=== PATIENT | female | born 1945 | race Asian ===

== ENCOUNTER 2025-02-21 11:05 | Outpatient (AMB) | payer MEDICARE, MEDICAID, SELFPAY ==
[2025-02-21 11:54] VITALS: BP 148/95; PULSE 81; RESP 14; TEMP 36.3; O2SAT 95; BMI 24.7
--- NOTE | 2025-02-21 11:54 | AMB.GYNCLNOT ---
Vital Signs 02/21/25 11:54 Height 1.63 m Height Method Stated Weight 65.431 kg Weight Measurement Method Standing Scale BMI 24.7 BP 148/95 H Blood Pressure Source Automatic Cuff Blood Pressure Location Left Upper Arm Position Sitting Respiration 14 Pulse 81 Pulse Source Monitor Temp 97.4 F Temp Source Oral Pulse Oximetry (%) 95 Oxygen Delivery Method Room Air Allergies/Home Meds Allergies & Medications Allergies No Known Allergies Allergy (Verified 03/07/25 10:01) Medication Reconciliation simvastatin 40 mg tablet (Zocor) 40 mg PO QDAY #0 tabs 04/27/16 [History Confirmed 04/17/25] losartan 50 mg tablet 50 mg PO DAILY 07/07/21 [History Confirmed 04/17/25] empagliflozin 25 mg tablet (Jardiance) 25 mg PO QDAY 04/22/23 [History Confirmed 04/17/25] glipizide 5 mg tablet 5 mg PO BID 04/22/23 [History Confirmed 04/17/25] estradiol 0.01% (0.1 mg/gram) vaginal cream 1 g vaginal QDAY 30 days #42.5 grams 02/21/25 [Rx Confirmed 04/17/25] tranexamic acid 650 mg tablet 650 mg PO Q8H 7 days #21 tabs 02/21/25 [Rx Confirmed 04/17/25] Intake Visit Data Collection New Patient or Established: Established Patient (seen at [facility] within 3 years) Reason for Visit:: ABNORMAL VAGINAL BLEEDING Seen by Clinical Staff ONLY (RN/MA): No Cra Officer Required: No Do You Feel Safe at Home: Yes Authorities Contacted: N/A PCP or OBGYN visit in last 3 months: Yes Hx Now: No Are you currently on any form of Control: No Pain Present Currently: No Pain Scale Used: Jurado-Benavides/Numerical Pain scale:: 0 Smoking Status Smoking Status: 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 Menstrual regularity: regular Flow: normal Monthly: Yes Age at menarche: 16 Currently sexually active: No 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 1. Little interest or pleasure in doing things: not at all 2. Feeling down, depressed, or hopeless: not at all Total score: 0 PHQ-9 3. Trouble falling or staying asleep, or sleeping too much: Not at all 4. Feeling tired or having little energy: Not at all 5. Poor appetite or overeating: Not at all 6. Feeling bad about yourself - or that you are a failure or have let yourself or your family down: Not at all 7. Trouble concentrating on things, such as reading the newspaper or watching television: Not at all 8. Moving or speaking so slowly that other people could have noticed? - Or the opposite - being so fidgety or restless that you have been moving around a lot more than usual: not at all 9. Thoughts that you would be better off or of hurting yourself in some way: Not at all Total score: 0 Source: Developed by Drs. Olegario Miller, Sherley Olivia, Peter Boone and colleagues, with an educational nhung from [employer]. Depression screen completed yes Social History Living Situation History Housing: House Tobacco History Smoking Status: 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 Second Hand Smoke Exposure: No Alcohol History Alcohol Intake: Never Domestic Abuse History Do You Feel Safe at Home: Yes History of Present Illness HPI Narrative Patient is a 79-year-old who is presenting for postmenopausal bleeding. Patient reports ongoing bleeding for the last 4 to 5 days she also is complaining of a bulge in the vaginal area which she attributes as the reason for the bleeding. Patient is describing within that her ovary is out in the vagina. Patient has a past medical history significant for cervical adenopathy for she was seen by oncology over the last [address] scan showed nonspecific adenopathy with no mediastinal or acute abdominal or pelvic processes. Tumor markers were unremarkable. She was treated with antibiotics at that time. 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 No acute bleeding noted at the time of initial exam Office Procedures OBC Clinic LOC & Office Proc's Nursing/Assessment Patient Status: Established Patient OB Clinic Nursing Assessment: Medication Reconciliation, Update PMH in EMR and Vital Signs OB Clinic Coordination of Care: Complex Care and Chronic Disease 1-5, Consent,records obtained, informed consent, Education Simp Pt/Fam, 1 Ins Authorization, Lab and Imaging orders, Results/Orders obtained and Staff clarify orders Established Patient Charge Established Patient Point Assignment: 120 Established Patient Point Charge: EP Level 4 (120-155) Assessment & Plan Diagnosis / Problem List (1) Post-menopausal bleeding: Status: Acute Plan 79-year-old with recurrent postmenopausal bleeding 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 Return in 5 to 7 days with ultrasound results Planned endometrial biopsy at next appointment after the stripe is assessed. Possible surgical management including vaginal hysterectomy if patient desires. Advanced Care Planning Advance care planning discussed with:: patient and child
== END 2025-02-21 12:59 | disposition home or self-care (01) ==
LOC: HODSOBC 11:05
PROVIDERS: Supervising Provider Obstetrics & Gynecology; Visit Provider Obstetrics & Gynecology
DX: N95.0 Postmenopausal bleeding (principal); E11.9 Type 2 diabetes mellitus without complications; I10 Essential (primary) hypertension
CPT/HCPCS: 99214; G0463

== ENCOUNTER → 2025-02-22 | Outpatient (CLI) | payer MEDICARE, MEDICAID, SELFPAY ==
--- NOTE | 2025-02-22 11:09 | XR_ITS ---
Examination: Pelvic ultrasound, transabdominal, complete Technique: Transabdominal ultrasound of the pelvis performed using grayscale imaging Date and time of exam: February 22, 2025, 1116 hours INDICATIONS: Post menopausal bleeding beginning one month ago FINDINGS: Uterus 5.6 cm endometrial stripe 0.4 cm No uterine mass Right ovary 2.1 cm arterial flow Left ovary obscured by bowel gas IMPRESSION: No uterine mass, endometrial stripe 0.4 cm
--- NOTE | 2025-02-22 11:10 | XR_ITS ---
Examination: Transvaginal ultrasound of the pelvis, complete Technique: Transvaginal sonographic images pelvis performed using ruiz scale imaging Exam date and time: February 22, 2025, 1123 hours INDICATIONS: Postmenopausal bleeding beginning one month ago FINDINGS: Severely limited study, uterus ovaries obscured by bowel gas IMPRESSION: Severely limited study.
== END | disposition home or self-care (01) ==
PROVIDERS: PCP Family Medicine; Referring Provider Obstetrics & Gynecology; Visit Provider Obstetrics & Gynecology
DX: N95.0 Postmenopausal bleeding (principal)
CPT/HCPCS: 76830; 76856

== ENCOUNTER 2025-03-07 09:53 | Outpatient (AMB) | payer MEDICARE, MEDICAID, SELFPAY ==
--- NOTE | 2025-03-07 09:58 | GYNCLNT_ITS ---
Vital Signs 03/07/25 09:59 Height 1.63 m Height Method Stated Weight 65.487 kg Weight Measurement Method Standing Scale BMI 24.6 BP 137/73 H Blood Pressure Source Automatic Cuff Blood Pressure Location Right Upper Arm Position Sitting Respiration 17 Pulse 96 Pulse Source Monitor Temp 97.3 F Temp Source Temporal Artery Scan Pulse Oximetry (%) 95 Oxygen Delivery Method Room Air Allergies/Home Meds Allergies & Medications Allergies No Known Allergies Allergy (Verified 03/07/25 10:01) Medication Reconciliation simvastatin 40 mg tablet (Zocor) 40 mg PO QDAY #0 tabs 04/27/16 [History Co nfirmed 03/07/25] losartan 50 mg tablet 50 mg PO DAILY 07/07/21 [History Confirmed 03/07/25] empagliflozin 25 mg tablet (Jardiance) 25 mg PO QDAY 04/22/23 [History Confirmed 03/07/25] glipizide 5 mg tablet 5 mg PO BID 04/22/23 [History Confirmed 03/07/25] estradiol 0.01% (0.1 mg/gram) vaginal cream 1 g vaginal QDAY 30 days #42.5 grams 02/21/25 [Rx Confirmed 03/07/25] tranexamic acid 650 mg tablet 650 mg PO Q8H 7 days #21 tabs 02/21/25 [Rx Confirmed 03/07/25] Intake Visit Data Collection New Patient or Established: Established Patient (seen at [facility] within 3 years) Reason for Visit:: RESULTS Seen by Clinical Staff ONLY (RN/MA): No Back Line Cook Required: No Do You Feel Safe at Home: Yes Authorities Contacted: N/A PCP or OBGYN visit in last 3 months: Yes Date of Last PCP or OBGYN visit: 02/21/25 Hx Now: No Are you currently on any form of Control: No Pain Present Currently: No Pain Scale Used: Jurado-Benavides/Numerical Pain scale:: 0 Smoking Status Smoking Status: 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 1. Little interest or pleasure in doing things: not at all 2. Feeling down, depressed, or hopeless: not at all Total score: 0 PHQ-9 3. Trouble falling or staying asleep, or sleeping too much: Not at all 4. Feeling tired or having little energy: Not at all 5. Poor appetite or overeating: Not at all 6. Feeling bad about yourself - or that you are a failure or have let yourself or your family down: Not at all 7. Trouble concentrating on things, such as reading the newspaper or watching te levision: Not at all 8. Moving or speaking so slowly that other people could have noticed? - Or the opposite - being so fidgety or restless that you have been moving around a lot more than usual: not at all 9. Thoughts that you would be better off or of hurting yourself in some way: Not at all Total score: 0 If you checked off any problems, how difficult have these problems made it for you to do your work, take care of things at home, or get along with other people?: not difficult at all Source: Developed by Drs. Olegario Miller, Sherley Olivia, Peter Boone and colleagues, with an educational nhung from [employer]. Depression screen completed yes Social History Living Situation History Marital Status: Lives With: Family Housing: House Tobacco History Smoking Status: 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 Second Hand Smoke Exposure: No Alcohol History Alcohol Intake: Never Domestic Abuse History Do You Feel Safe at Home: Yes History of Present Illness HPI Narrative Richard Perla presents with recurrent postmenopausal bleeding occurring for 3 days. She initially experienced one episode of postmenopausal bleeding and underwent both transabdominal and transvaginal ultrasound on February 22, 2025. The patient had been prescribed medication that initially stopped the bleeding, but the bleeding has resumed. She describes feeling like her ovary is on her vagina, which appears to be related to pelvic organ prolapse that is bothersome to her, with symptoms described as coming out. She has a past medical history significant for localized cervical adenopathy, for which she was previously evaluated by oncology in 2021 and 2022. At that time, CT scans showed nonspecific cervical adenopathy with no mediastinal or acute abdominal or pelvic processes. Tumor markers including CA 19-9, CA 125, CA 15-3, and CEA were unremarkable in 2022. She was treated with antibiotics at that time, but no further follow-up was completed. The patient has been taking medicine for bleeding which previously stopped the bleeding, but bleeding has recurred. She was previously treated with antibiotics for cervical adenopathy in [id number]. She is a 79-year-old female. ROS: Positive for recurrent postmenopausal bleeding for 3 days, positive for sensation of pelvic organ prolapse. Diagnostic Test Results and Labs: - Pelvic ultrasound (02-22-2025): Uterus 5.6 cm, endometrial stripe 0.4 cm, no uterine mass. Right ovary 2.1 cm with axial flow, left ovary obscured by gas. - CT scans (): Nonspecific cervical adenopathy, no mediastinal or acute process in abdomen or pelvis - Tumor markers (): CA 19-9, CA 125, CA 15-3, and CEA unremarkable Exam General General Appearance: alert, in no apparent distress and healthy appearing Head Head exam: atraumatic Neck Neck exam: Present normal inspection and trachea midline Chest Chest inspection: Present normal inspection and symmetric chest wall rise External exam: Present normal external exam; Absent tenderness Neuro Neurological exam: Present oriented X3 Psych Psychiatric exam: Present normal affect and normal mood Office Procedures OBC Clinic LOC & Office Proc's Nursing/Assessment Patient Status: Established Patient OB Clinic Nursing Assessment: Medication Reconciliation, Update PMH in EMR and Vital Signs OB Clinic Coordination of Care: Complex Care and Chronic Disease 1-5, Education Complex Pt/Fam, Consent,records obtained, informed consent, Results/Orders obtained and Staff clarify orders Established Patient Charge Established Patient Point Assignment: 95 Established Patient Point Charge: EP Level 3 (80-115) Assessment & Plan Diagnosis / Problem List (1) Post-menopausal bleeding: Status: Acute (2) Female genital prolapse, unspecified: Status: Acute Plan Recurrent Postmenopausal Bleeding: - 79-year-old female with recurrent postmenopausal bleeding for 3 days following initial episode. - Transvaginal and transabdominal ultrasound showed uterus measuring 5.6 cm with endometrial stripe of 0.4 cm. - No uterine mass identified, right ovary measured 2.1 cm. - Initial treatment temporarily stopped bleeding but symptoms have recurred. Plan: - Schedule endometrial biopsy to rule out endometrial pathology. - Prescribe cervical ripening medication to be taken as one dose 24 hours before biopsy to facilitate easier procedure with less cramping and pain. - Perform pelvic examination during biopsy appointment. Pelvic Organ Prolapse: - Age-related pelvic organ prolapse involving uterus and pelvic organs. - Patient reports sensation of ovary protruding into vagina with significant bothersome symptoms. - Physical examination findings consistent with prolapse. Plan: - Surgical management discussed as definitive treatment option including hysterectomy. - Patient counseled that decision depends on symptom severity and patient preference. Advanced Care Planning Advance care planning discussed with:: patient and child
[2025-03-07 09:59] VITALS: BP 137/73; PULSE 96; RESP 17; TEMP 36.3; O2SAT 95; BMI 24.6
== END 2025-03-07 10:19 | disposition home or self-care (01) ==
LOC: HODSOBC 09:53
PROVIDERS: Supervising Provider Obstetrics & Gynecology; Visit Provider Obstetrics & Gynecology
DX: N95.0 Postmenopausal bleeding (principal); N81.9 Female genital prolapse, unspecified; I10 Essential (primary) hypertension; E11.9 Type 2 diabetes mellitus without complications; Z79.899 Other long term (current) drug therapy; Z79.84 Long term (current) use of oral hypoglycemic drugs
CPT/HCPCS: 99213; G0463

== ENCOUNTER 2025-04-17 10:47 | Outpatient (AMB) | payer MEDICARE, MEDICAID, SELFPAY ==
[2025-04-17 11:00] VITALS: BP 136/77; PULSE 85; RESP 18; TEMP 36.7; O2SAT 95; BMI 24.3
--- NOTE | 2025-04-17 11:00 | GYNCLNT_ITS ---
Vital Signs 04/17/25 11:00 Height 1.63 m Height Method Stated Weight 64.637 kg Weight Measurement Method Standing Scale BMI 24.3 BP 136/77 H Blood Pressure Source Automatic Cuff Blood Pressure Location Right Upper Arm Position Sitting Respiration 18 Pulse 85 Pulse Source Monitor Temp 98.1 F Temp Source Temporal Artery Scan Pulse Oximetry (%) 95 Oxygen Delivery Method Room Air Allergies/Home Meds Allergies & Medications Allergies No Known Allergies Allergy (Verified 03/07/25 10:01) Medication Reconciliation simvastatin 40 mg tablet (Zocor) 40 mg PO QDAY #0 tabs 04/27/16 [History Co nfirmed 04/17/25] losartan 50 mg tablet 50 mg PO DAILY 07/07/21 [History Confirmed 04/17/25] empagliflozin 25 mg tablet (Jardiance) 25 mg PO QDAY 04/22/23 [History Confirmed 04/17/25] glipizide 5 mg tablet 5 mg PO BID 04/22/23 [History Confirmed 04/17/25] estradiol 0.01% (0.1 mg/gram) vaginal cream 1 g vaginal QDAY 30 days #42.5 grams 02/21/25 [Rx Confirmed 04/17/25] tranexamic acid 650 mg tablet 650 mg PO Q8H 7 days #21 tabs 02/21/25 [Rx Confirmed 04/17/25] Intake Visit Data Collection New Patient or Established: Established Patient (seen at [facility] within 3 years) Reason for Visit:: EMB BX Seen by Clinical Staff ONLY (RN/MA): No Proof Plate Maker Required: No Do You Feel Safe at Home: Yes Authorities Contacted: N/A PCP or OBGYN visit in last 3 months: Yes Date of Last PCP or OBGYN visit: 03/07/25 Hx Now: No Are you currently on any form of Control: No Pain Present Currently: No Pain Scale Used: Jurado-Benavides/Numerical Pain scale:: 0 Smoking Status Smoking Status: 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 Immunizations Flu Vaccine in the Last 12 Months: No Flu Vaccine Exclusion Criteria: No Exclusion Criteria 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 1. Little interest or pleasure in doing things: not at all 2. Feeling down, depressed, or hopeless: not at all Total score: 0 PHQ-9 3. Trouble falling or staying asleep, or sleeping too much: Not at all 4. Feeling tired or having little energy: Not at all 5. Poor appetite or overeating: Not at all 6. Feeling bad about yourself - or that you are a failure or have let yourself or your family down: Not at all 7. Trouble concentrating on things, such as reading the newspaper or watching television: Not at all 8. Moving or speaking so slowly that other people could have noticed? - Or the opposite - being so fidgety or restless that you have been moving around a lot more than usual: not at all 9. Thoughts that you would be better off or of hurting yourself in some way: Not at all Total score: 0 If you checked off any problems, how difficult have these problems made it for you to do your work, take care of things at home, or get along with other people?: not difficult at all Source: Developed by Drs. Olegario Miller, Sherley Olivia, Peter Boone and colleagues, with an educational nhung from [employer]. Depression screen completed yes Social History Living Situation History Marital Status: Lives With: Family Housing: House Tobacco History Smoking Status: 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 Second Hand Smoke Exposure: No Alcohol History Alcohol Intake: Never Domestic Abuse History Do You Feel Safe at Home: Yes Office Procedures OBC Clinic LOC & Office Proc's Nursing/Assessment Patient Status: Established Patient OB Clinic Nursing Assessment: Medication Reconciliation, Update PMH in EMR and Vital Signs OB Clinic Coordination of Care: Complex Care and Chronic Disease 1-5, Education Complex Pt/Fam, Consent,records obtained, informed consent, Lab and Imaging orders, Results/Orders obtained and Staff clarify orders Miscellaneous Interventions: Path collection/handling and Pelvic no cultures Established Patient Charge Established Patient Point Assignment: 135 Established Patient Point Charge: EP Level 4 (120-155) In Clinic Procedures Minor Surgical Procedure: Yes Assessment & Plan Diagnosis / Problem List (1) Complete uterine prolapse with prolapse of anterior vaginal wall: Status: Acute (2) Female genital prolapse, unspecified: Status: Acute (3) Post-menopausal bleeding: Status: Acute
== END 2025-04-17 11:24 | disposition home or self-care (01) ==
LOC: HODSOBC 10:47
PROVIDERS: Supervising Provider Obstetrics & Gynecology; Visit Provider Obstetrics & Gynecology
DX: N81.3 Complete uterovaginal prolapse (principal); N95.0 Postmenopausal bleeding; I10 Essential (primary) hypertension; E11.9 Type 2 diabetes mellitus without complications; Z79.899 Other long term (current) drug therapy; Z79.84 Long term (current) use of oral hypoglycemic drugs
CPT/HCPCS: 99214; G0463